=== PATIENT | female | born 1970 | race Caucasian/White ===

== ENCOUNTER → 2020-10-15 | Emergency (ER) | payer MEDICAID, OTHER ==
[~2020-10-15] VITALS: Ht 162.6 cm; Wt 86.3 kg
[~2020-10-15] MED LIST: NO HOME MEDS
[2020-10-15 16:26] VITALS: BP 122/86
== END | disposition left against medical advice (07) ==
LOC: ER 20:27
DX: L02.413 Cutaneous abscess of right upper limb (principal); Z53.21 Procedure and treatment not carried out due to patient leaving prior to being seen by health care provider